=== PATIENT | male | born 1975 | race Caucasian/White ===

== ENCOUNTER → 2018-02-11 | Day surgery (SDC) | payer OTHER ==
[~2018-02-11] MED LIST: LIDOCAINE 2% PF Vial for OR 5 ML VIAL.; PROPOFOL 20 ML IV
[2018-02-11] MEDS: IV RINGERS,LACTATED 1000ML 1,000 ML IV (15:48)
== END ==
LOC: SURG 15:10
DX: K64.0 First degree hemorrhoids (principal); K59.09 Other constipation; I10 Essential (primary) hypertension; M19.90 Unspecified osteoarthritis, unspecified site; E66.9 Obesity, unspecified; Z72.89 Other problems related to lifestyle; Z72.0 Tobacco use; Z98.890 Other specified postprocedural states
CPT/HCPCS: 45378; J2001; J2704

== ENCOUNTER → 2019-03-24 | Outpatient (CLI) | payer OTHER ==
[2018-02-11 16:38] VITALS: BP 124/86
[~2019-03-24] MED LIST changes: -LIDOCAINE 2% PF Vial for OR 5 ML VIAL.; -PROPOFOL 20 ML IV; +REGADENOSON 0.4 MG/5 ML DISP.SYRIN. IV ONE
--- NOTE | 2019-03-24 11:25 | RAD ---
MR#: [id number] Date of Study: 03/24/2019 Ordering Physician: CARLOS HAUSER, Referring Physician: CARLOS HAUSER, Tech: Quintin Garcia, ELLIOTT, RDMS, RVT, RDCS, RTR APPROVED REPORT Patient Location : OUT-PATIENT Indications Lower Extremity Edema : Bilateral Findings Grayscale images of the bilateral saphenofemoral junctions do not reveal any obvious evidence of thro mbus. The right great saphenous vein measures 5.9 mm and the left great saphenous vein measures 6.6 mm. Bot h of these venis do not show any evidence of reflux. Bilateral lesser saphenous veins do not show any evidence of reflux. Critical Notification Critical Value: No <Conclusion> 1. Negative for reflux the bilateral greater and lesser saphenous veins Signed by : Darnell Figueroa, Electronically Approved : 03/24/2019 11:25:00
--- NOTE | 2019-03-25 13:13 | RAD ---
MR#: [id number] Date of Study: 03/25/2019 Ordering Physician: CARLOS HAUSER, Referring Physician: PROMISE BLOUNT Tech: MIAN Rider, ARRT (R) (N) APPROVED REPORT Test Type: Pharmacological Stress Nurse/Tech: Sonya Melendez RN Test Indications: Arrythmias/near syncope Cardiac History: Hypertension,former smoker Medications: See Electronic Medical Record Medical History: See Electronic Medical Record Resting ECG: SR with PVC Resting Heart Rate: 64 bpm Resting Blood Pressure: 137/83mmHg Pretest Chest Pain: No chest pain Nurse/Tech Notes S1,S2 and lungs clear to auscultation. Consent: The procedure was explained to the patient in lay terms. Informed consent was witnessed. Devang eout was entered into [facility]. History and Stress Test performed by RT Ignacio Qiu) (N) Pharm. Details Pharmacologic stress testing was performed using 0.4mg per 5ml of regadenoson given intravenously ove r 7-10 seconds. Stress Symptoms Dizziness,Dyspnea POST EXERCISE Reason for Termination: Infusion complete Target HR: No Max HR: 86 bpm Max Blood Pressure: 137/81mmHg Blood Pressure response to exercise: Normal blood pressure response during stress. Heart Rate response to exercise: WNL Chest Pain: No. Arrhythmia: Yes. PVC ST Change: No. INTERPRETATION Stress EKG Conclusion: Baseline EKG showed sinus rhythm. No ischemic changes at peak stress. No sig nificant arrhythmias. Imaging Protocol IMAGE PROTOCOL: Rest Tc-99m/stress Tc-99m 2 days Rest: Stress: Viability: Radiopharm.Tc99m EijifjcofVa27y Sestamibi Mepo80wAf 38mCi Inj-Img Fram96skq. 90min. Rest Admin Site:IV - Right HandAdministrator:GEORGIA Lazaro Stress Admin Site: IV - Right HandAdministrator: RT Lazarus (R)(N) STRESS DATA End Diast. Vol.101.0mlLVEDV index BSA41.0ml End Syst. Vol.26.0mlLVESV index BSA11.0ml Myocardial Amtm689.0gEject. Qcirfpqw82.0% Stress Scores Regional WT0.00Summed WT4.00 Regional WM0.00Summed WM0.00 Study quality was good. Left Ventricular size was Normal at Rest and Stress. Lung uptake was . Left Ventricular ejection fraction is 76%. The rest and stress images show normal perfusion, normal contraction and thickening. LV Perf. Quant 17 Seg. SSS1.00 17 Seg. SRS0.00 17 Seg. SDS1.00 Stress Defect Extent (% LAD)0.00Rest Defect Extent (% LAD)0.00Rev. Defect Extent (% LAD)0.00 Stress Defect Extent (% LCX) 0.00Rest Defect Extent (% LCX)0.00Rev. Defect Extent (% LCX)0.00 Stress Defect Extent (% RCA)0.00Rest Defect Extent (% RCA)0.00Rev. Defect Extent (% RCA)0.00 Stress Defect Extent (% RAO)0.00Rest Defect Extent (% RAO)0.00Rev. Defect Extent (% RAO)0.00 Conclusion 1. Regadenoson cardioisotope stress test did not show any evidence of ischemia or infarct. 2. Normal left ventricular systolic function with ejection fraction calculated at 76%. 3. Low risk for cardiac events. Signed by : Carlos Hauser, Electronically Approved : 03/25/2019 13:13:07
== END | disposition home or self-care (01) ==
LOC: US 08:00
PROVIDERS: ATTEND Internal Medicine Cardiovascular Disease
DX: I49.3 Ventricular premature depolarization (principal); I10 Essential (primary) hypertension; R42 Dizziness and giddiness; R06.00 Dyspnea, unspecified; Z87.891 Personal history of nicotine dependence
CPT/HCPCS: 78452; 93970; A9500; 93017; 96376; J2785

== ENCOUNTER → 2019-04-30 | Outpatient (CLI) | payer OTHER ==
[2018-02-11 16:38] VITALS: BP 124/86
--- NOTE | 2019-05-01 13:53 | CARD ---
MR#: [id number] Date of Study: 04/30/2019 Ordering Physician: CARLOS HAUSER, Referring Physician: CARLOS HAUSER Tech: Loly Gray RDCS APPROVED REPORT EXAM: Two-dimensional and M-mode echocardiogram with Doppler and color Doppler. Other Information Quality : Good INDICATION Chest Pain Murmur 2D DIMENSIONS RVDd2.5 (2.9-3.5cm)Left Atrium(2D)3.0 (1.6-4.0cm) IVSd1.0 (0.7-1.1cm)Aortic Root(2D)2.9 (2.0-3.7cm) LVDd4.5 (3.9-5.9cm)LVOT Diameter2.2 (1.8-2.4cm) PWd1.0 (0.7-1.1cm)LVDs2.2 (2.5-4.0cm) FS (%) 30.0 %SV76.0 ml LVEF(%)55.0 (>50%) Aortic Valve AoV Peak Brent.114.3cm/sAoV VTI21.4cm AO Peak GR.5.2mmHgLVOT Peak Brent.105.8cm/s LVOT VTI 19.80cmAO Mean GR.3mmHg TOMMIE (VMAX)3.89tu7NPA (VTI)3.68cm2 Mitral Valve MV E Fpltxzom73.4cm/sMV DECEL HZPX474dt MV A Emzrmcdl27.8cm/sMV GCV68gy E/A Ratio1.8MVA (PHT)4.19cm2 TDI E/Lateral E'10.8E/Medial E'11.7 Tricuspid Valve TR P. Frbvvtyv634uu/sRAP LOKJSKWN4xsVl TR Peak Gr.46gtXsPVBM25wvRp Pulmonary Vein S1 Lzzkfola30.2cm/sD2 Kgjpgkzv43.8cm/s LEFT VENTRICLE The left ventricle is normal size. There is normal left ventricular wall thickness. The left ventricu lar systolic function is normal and the ejection fraction is within normal range. The Ejection Fracti on is 55%. There is normal LV segmental wall motion. The left ventricular diastolic function and fill ing is normal for age. RIGHT VENTRICLE The right ventricle is normal size. The right ventricular systolic function is normal. ATRIA The left atrium size is normal. The right atrium size is normal. The interatrial septum is intact wit h no evidence for an atrial septal defect or patent foramen ovale as noted on 2-D or Doppler imaging. AORTIC VALVE The aortic valve is calcified but opens well. Doppler and Color Flow revealed no significant aortic r egurgitation. There is no significant aortic valvular stenosis. MITRAL VALVE The mitral valve is normal in structure and function. There is no evidence of mitral valve prolapse. There is no mitral valve stenosis. Doppler and Color Flow revealed no mitral valve regurgitation note d. TRICUSPID VALVE The tricuspid valve is normal in structure and function. Doppler and Color Flow revealed physiologica l tricuspid regurgitation. The PA pressure was estimated at 17 mmHg. There is no tricuspid valve sten osis. PULMONIC VALVE The pulmonary valve is normal in structure and function. Doppler and Color Flow revealed no pulmonic valvular regurgitation. There is no pulmonic valvular stenosis. GREAT VESSELS The aortic root is normal in size. The ascending aorta is normal in size. The IVC is normal in size a nd collapses >50% with inspiration. PERICARDIAL EFFUSION There is no evidence of significant pericardial effusion. Critical Notification Critical Value: No <Conclusion> The left ventricular systolic function is normal and the ejection fraction is within normal range. Th e Ejection Fraction is 55%. There is normal LV segmental wall motion. Signed by : Darnell Figueroa, Electronically Approved : 04/30/2019 10:17:28
== END ==
LOC: ECHO 07:53
PROVIDERS: ATTEND Internal Medicine Cardiovascular Disease
DX: I08.2 Rheumatic disorders of both aortic and tricuspid valves (principal)
CPT/HCPCS: 93306

== ENCOUNTER → 2020-02-22 | Outpatient (CLI) | payer OTHER ==
[2018-02-11 16:38] VITALS: BP 124/86
--- NOTE | 2020-02-22 12:25 | RAD ---
EXAM: Left ankle, 3 views; left tibia and fibula, 2 views. HISTORY: Sprain. Fall. Swelling. COMPARISON: None. FINDINGS: 3 views left ankle and 2 views left tibia and fibula are obtained. There is a mildly displaced medial malleolar fracture. There is diffuse ankle soft tissue swelling. No osteochondral lesion is seen. 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 There is a small ossicle adjacent to the medial aspect of the medial femoral condyle possibly due to prior medial collateral ligament injury. IMPRESSION: Mildly displaced medial malleolar fracture. Electronically signed by: Janene Martinez MD (02/22/2020 12:22 PM) [id number]
== END | disposition home or self-care (01) ==
LOC: RAD 11:46
PROVIDERS: ATTEND Family Medicine
DX: S82.52XA Displaced fracture of medial malleolus of left tibia, initial encounter for closed fracture (principal); M79.89 Other specified soft tissue disorders; W19.XXXA Unspecified fall, initial encounter; Y93.89 Activity, other specified; Y92.89 Other specified places as the place of occurrence of the external cause; Y99.8 Other external cause status
CPT/HCPCS: 73590; 73610

== ENCOUNTER → 2021-12-29 | Outpatient (CLI) | payer OTHER ==
[2018-02-11 16:38] VITALS: BP 124/86
--- NOTE | 2021-12-29 16:43 | KCIC ---
EXAM: Lumbar spine MRI without contrast. HISTORY: Stenosis. TECHNIQUE: Multiplanar, multisequence magnetic resonance imaging of the lumbar spine was performed wi thout contrast. COMPARISON: None. FINDINGS: There is mild lumbar scoliosis. There is slight retrolisthesis of L3 on L4 and L4 and L5. T here is multilevel endplate remodeling with disc space narrowing and disc desiccation, primarily at L 4-L5. There are multiple endplate Schmorl's nodes. There are a few benign osseous hemangiomas. There is no suspicious osseous lesion. There is no acute or subacute fracture. At L1-L2, there is a left foraminal to extra foraminal disc protrusion superimposed on a disc bulge a nd endplate remodeling. There is mild left greater than right facet arthropathy. There is mild retrol isthesis. There is moderate left foraminal stenosis with abutment of the exiting left L1 nerve root. At L2-L3, there is a right foraminal to extra foraminal disc protrusion and annular tear with osteoph yte complex superimposed on endplate remodeling. There is mild bilateral facet arthropathy. There is mild to moderate right and mild left foraminal stenosis with abutment of the exiting right L2 nerve r oot. There is mild central canal stenosis. At L3-L4, there is a broad-based right paracentral to lateral recess disc protrusion and 6 mm inferio r extrusion superimposed on a disc bulge and endplate remodeling. There is mild bilateral facet arthr opathy. There is mild retrolisthesis. There is mild to moderate right and mild left foraminal stenosi s with abutment of the exiting right greater than left L3 nerve roots. There is severe central canal stenosis. At L4-L5, there is a broad-based posterior central disc protrusion and annular tear with slight infer ior extrusion and there are left greater than right foraminal to extraforaminal disc protrusions supe rimposed on a disc bulge and endplate osteophytosis. There is mild bilateral facet arthropathy. There are laminectomy changes. There is severe right and moderate left foraminal stenosis with abutment of the exiting L4 nerve roots. There is clumping of the traversing nerve roots. At L5-S1, there is a left lateral recess to foraminal disc protrusion and annular tear with osteophyt e complex superimposed on a disc bulge and endplate remodeling. There is mild right greater than left facet arthropathy. There is mild right and moderate left foraminal stenosis. There is narrowing of t he left lateral recess. There is clumping of the traversing nerve roots. IMPRESSION: 1. Multilevel degenerative change involving the lumbar spine, described in detail above. This results in significant stenosis at the aforementioned levels. The central canal stenosis is most severe at L 3-L4. 2. Laminectomy changes at L4-L5. There is clumping of the nerve roots at this level and at L5-S1, a f inding which can be seen as a sequela of arachnoiditis. Electronically signed by: Janene Martinez MD (12/29/2021 4:40 PM) [id number]
== END ==
LOC: KCIC MRI 15:25
PROVIDERS: ATTEND Family Medicine
DX: M47.816 Spondylosis without myelopathy or radiculopathy, lumbar region (principal); M41.86 Other forms of scoliosis, lumbar region; M51.27 Other intervertebral disc displacement, lumbosacral region; M48.07 Spinal stenosis, lumbosacral region; M25.78 Osteophyte, vertebrae; M48.8X7 Other specified spondylopathies, lumbosacral region; M51.36 Other intervertebral disc degeneration, lumbar region; M43.16 Spondylolisthesis, lumbar region; M51.46 Schmorl's nodes, lumbar region; Z98.890 Other specified postprocedural states
CPT/HCPCS: 72148